=== PATIENT | female | born 1990 | race Caucasian/White ===

== ENCOUNTER 2018-12-20 20:32 | Emergency (ER) | payer MEDICAID ==
[2018-12-20 20:37] VITALS: BP 169/99
--- NOTE | 2018-12-20 20:39 | ED Physician Documentation ---
PD HPI SKIN - Stated complaint Stated Complaint: INSECT BITE - Chief complaint Chief Complaint: Wound - History obtained from History obtained from: Patient - History of Present Illness Timing - onset: How many days ago (2) Timing - duration: Days (2) Timing - details: Gradual onset Pain level now: 0 Location: Abdomen Quality / character: Itchy, Painful, Discolored, Raised, Swelling, Draining Contributing factors: Unknown Similar symptoms before: Has not had sx before Recently seen: Not recently seen - Additional information Additional information: c/o 2 days of atraumatic redness and swelling on abdominal wall with purulent drainage. Review of Systems Constitutional: denies: Fever, Chills, Sweats GI: denies: Abdominal Pain Skin: reports: Rash, Lesions PD PAST MEDICAL HISTORY - Past Medical History Past Medical History: Yes Psych: Depression - Present Medications Home Medications: Ambulatory Orders Medication Instructions Recorded Confirmed Lamotrigine [Lamictal (Green)] 12/20/18 Mupirocin 1 film TP BID #1 oint...g. 12/20/18 Prazosin [Minipress] 12/20/18 Sertraline HCl [Zoloft] 12/20/18 Sulfamethox/Trimeth 800/160 1 each PO BID #13 tablet 12/20/18 [Bactrim Ds 800/160] - Allergies Allergies/Adverse Reactions: Allergies Allergy/AdvReac Type Severity Reaction Status Date / Time No Known Drug Allergies Allergy Verified 12/20/18 20:37 PD ED PE NORMAL - Vitals Vital signs reviewed: Yes - General General: Alert and oriented X 3, No acute distress, Well developed/nourished PD ED PE EXPANDED - Abdomen Abdomen Visual: 1 - rash (confluent, flat erythema with mild induration but no fluctuance. central area of ulceration and there is echymosis surrounding the erythema. nontender, no active discharge) Results - Vitals Vitals: Vital Signs - 24 hr 12/20/18 20:35 Temperature 36.6 C Heart Rate 77 Respiratory 16 Rate Blood Pressure 169/99 H O2 Saturation 98 Oxygen O2 Source Room air PD MEDICAL DECISION MAKING - ED course Complexity details: considered differential, d/w patient Departure - Departure Disposition: Home, Self Care Clinical Impression: Abdominal wall cellulitis Condition: Good Instructions: ED Staph Infec Abx Tx Only, ED Infec Skin Cellulitis Prescriptions: Mupirocin 1 film TP BID #1 oint...g. Sulfamethox/Trimeth 800/160 [Bactrim Ds 800/160] 1 each PO BID #13 tablet
[2018-12-20] MEDS ORDERED: MUPIROCIN 2% OINT 1 GM TOP STA (20:55)
[2018-12-20] MEDS ORDERED: SULFAMETH/TRIMETH DS 800/160 MG TABLET PO STA (20:55)
== END 2018-12-20 21:06 | disposition home or self-care (01) ==
LOC: ED 20:32
DX: L03.311 Cellulitis of abdominal wall (principal)
CPT/HCPCS: 99282; 99283; A9270